=== PATIENT | male | born 1990 | race Caucasian/White ===

== ENCOUNTER 2021-08-30 08:13 | Outpatient (REF) | payer OTHER, SELFPAY ==
--- NOTE | ~2021-08-30 | XR_ITS ---
EXAMINATION: XR KNEE, LEFT CLINICAL INFORMATION: Left knee pain COMPARISON: None TECHNIQUE: Four views of the left knee. FINDINGS: Bones and soft tissues are normal. No fracture or joint effusion. Alignment is anatomic. Joint spaces are well maintained. No abnormal soft tissue calcification. XR/XR knee LT 4V IMPRESSION: Unremarkable left knee.
== END 2021-08-30 08:14 | disposition home or self-care (01) ==
LOC: HO.XRAY 08:13
PROVIDERS: PCP Internal Medicine; Visit Provider Internal Medicine
DX: M25.562 Pain in left knee (principal)
CPT/HCPCS: 73564

== ENCOUNTER → 2021-10-13 09:03 | Outpatient (BNVA) | payer OTHER, SELFPAY | PROVIDERS: PCP Internal Medicine; Visit Provider Physician Assistant | DX: M22.2X2 Patellofemoral disorders, left knee (principal) ==

== ENCOUNTER 2021-11-13 14:53 | Outpatient (RCR) | payer OTHER, SELFPAY ==
--- NOTE | 2022-03-16 08:27 | MHC.PT.DC ---
[facility] [place] [facility] [place] [facility] [place] [facility] [address] Maulik Manzo [address] [phone] F: [phone] F: [phone] F: [phone] F: [phone] Physical Therapy Discharge Report Diagnosis: L patellofemoral disorder. Date of Surgery: Date of Evaluation: 11/13/21 Date of Discharge: 03/16/22 Treatments to Date: 1 Cancellations to Date: No Shows to Date: Discharge Status: Patient Elected to Stop Visit Non-compliance Discharge Summary: Pt did not attempt therapy past his initial evaluation. Electronically signed by: Matias Dickey PT Please sign and return to therapist. Thank you for your referral.
== END 2022-03-16 08:26 | disposition home or self-care (01) ==
LOC: HO.PTCHIC 14:53
PROVIDERS: PCP Internal Medicine; Visit Provider Physician Assistant
DX: M22.2X2 Patellofemoral disorders, left knee (principal)
CPT/HCPCS: 97110; 97161

== ENCOUNTER → 2022-01-23 14:19 | Outpatient (BNVA) | payer SELFPAY | PROVIDERS: PCP Internal Medicine; Visit Provider Physician Assistant Medical | DX: Z02.79 Encounter for issue of other medical certificate (principal) ==

== ENCOUNTER → 2022-05-01 11:27 | Outpatient (BNVA) | payer OTHER, SELFPAY | PROVIDERS: PCP Internal Medicine; Visit Provider Internal Medicine | DX: M54.50 Low back pain, unspecified (principal); M47.28 Other spondylosis with radiculopathy, sacral and sacrococcygeal region | CPT/HCPCS: 99202 ==

== ENCOUNTER 2022-05-03 07:42 | Outpatient (REF) | payer OTHER, SELFPAY ==
--- NOTE | ~2022-05-03 | XR_ITS ---
EXAMINATION: XR CERVICAL SPINE CLINICAL INFORMATION: Pain fall COMPARISON: None TECHNIQUE: 6 views of the cervical spine, inclusive of flexion and extension views, and oblique views were obtained. FINDINGS: The vertebral alignment is normal. No intrinsic bony abnormality. The disc heights and neural foramina are well maintained. The endplates and posterior elements are normal. No fracture or subluxation. The surrounding prevertebral soft tissues are unremarkable. XR/XR cervical spine min 6V IMPRESSION: Unremarkable examination.
--- NOTE | ~2022-05-03 | XR_ITS ---
EXAMINATION: XR LUMBOSACRAL SPINE CLINICAL INFORMATION: Pain fall COMPARISON: Prior lumbar examinations including MRI lumbar sacral spine November 2014 TECHNIQUE: Three views of the lumbosacral spine. FINDINGS: The vertebral bodies and posterior elements are normal. The disc spaces are preserved and the vertebral alignment is normal. The paraspinal soft tissues are normal. XR/XR lumbar spine 2-3V IMPRESSION: Unremarkable examination.
== END 2022-05-03 07:43 | disposition home or self-care (01) ==
LOC: HO.XRAY 07:42
PROVIDERS: PCP Chiropractor; Visit Provider Internal Medicine
DX: M54.50 Low back pain, unspecified (principal); M25.511 Pain in right shoulder; M79.604 Pain in right leg; W19.XXXA Unspecified fall, initial encounter; Y93.9 Activity, unspecified; Y92.9 Unspecified place or not applicable; Y99.0 Civilian activity done for income or pay
CPT/HCPCS: 72052; 72100

== ENCOUNTER → 2022-05-07 10:06 | Outpatient (BNVA) | payer OTHER, SELFPAY | PROVIDERS: PCP Chiropractor; Visit Provider Physician Assistant Medical | DX: M54.50 Low back pain, unspecified (principal); M47.28 Other spondylosis with radiculopathy, sacral and sacrococcygeal region | CPT/HCPCS: 99213 ==

== ENCOUNTER → 2022-05-22 11:18 | Outpatient (BNVA) | payer OTHER, SELFPAY | PROVIDERS: PCP Chiropractor; Visit Provider Physician Assistant Medical | DX: M54.50 Low back pain, unspecified (principal); M47.28 Other spondylosis with radiculopathy, sacral and sacrococcygeal region | CPT/HCPCS: 99213 ==

== ENCOUNTER 2022-06-07 21:35 | Emergency (ER) | payer OTHER, SELFPAY ==
--- NOTE | ~2022-06-07 | CT_ITS ---
EXAMINATION: CT HEAD WITHOUT CONTRAST CLINICAL INFORMATION: Head laceration. COMPARISON: No similar priors. TECHNIQUE: Contiguous axial imaging was performed from the skull base to vertex without intravenous administration of contrast. This CT examination was performed using dose optimization techniques as appropriate, variously including the following: *Automated exposure control *Adjustment of mA and/or kV according to patient size (this includes techniques or standardized protocols for targeted exams where dose is matched to indication/reason for exam; i.e. extremities or head) *Use of iterative reconstruction technique DLP: 771 mGy-cm FINDINGS: There is no evidence of acute intracranial hemorrhage or edematous territorial infarction. There is no abnormal attenuation within the brain parenchyma. Quan-white matter differentiation is preserved. The ventricles are normal in size and configuration. No evidence for obstructive hydrocephalus. No abnormal mass effect or midline shift. No extra-axial fluid collections. Small occipital scalp laceration with hematoma. No acute calvarial fracture. The mastoid air cells and paranasal sinuses are clear. CT/CT head/brain wo IV con IMPRESSION: Occipital scalp laceration with hematoma. No acute intracranial abnormality.
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
[2022-06-07 21:43] VITALS: BP 161/102; PULSE 127; RESP 16; TEMP 36.2; O2SAT 99; BMI 36.6
[2022-06-07 22:18] VITALS: BP 145/99; PULSE 102; RESP 20; O2SAT 96
[2022-06-07] MEDS: Diphth,Pertus(ACell),Tet Adult 0.5 ML SYRINGE IM (22:51)
== END 2022-06-07 23:17 | disposition home or self-care (01) ==
PROVIDERS: Emergency Provider Emergency Medicine; PCP Internal Medicine
DX: S06.0X0A Concussion without loss of consciousness, initial encounter (principal); S01.01XA Laceration without foreign body of scalp, initial encounter; S60.511A Abrasion of right hand, initial encounter; R51.9 Headache, unspecified; Y04.8XXA Assault by other bodily force, initial encounter; Y93.9 Activity, unspecified; Y92.9 Unspecified place or not applicable; Y99.0 Civilian activity done for income or pay; Z23 Encounter for immunization
CPT/HCPCS: 12032; 70450; 90471; 90715; 99283; 99284

== ENCOUNTER → 2022-06-08 10:15 | Outpatient (BNVA) | payer OTHER, SELFPAY | PROVIDERS: PCP Internal Medicine; Visit Provider Physician Assistant Medical | DX: S01.01XA Laceration without foreign body of scalp, initial encounter (principal); S50.02XA Contusion of left elbow, initial encounter; S16.1XXA Strain of muscle, fascia and tendon at neck level, initial encounter; Y04.2XXA Assault by strike against or bumped into by another person, initial encounter | CPT/HCPCS: 99202 ==

== ENCOUNTER → 2022-06-12 09:39 | Outpatient (BNVA) | payer OTHER, SELFPAY | PROVIDERS: PCP Internal Medicine; Visit Provider Internal Medicine | DX: S06.9X0A Unspecified intracranial injury without loss of consciousness, initial encounter (principal); S01.01XA Laceration without foreign body of scalp, initial encounter; S50.02XA Contusion of left elbow, initial encounter; Y04.2XXA Assault by strike against or bumped into by another person, initial encounter | CPT/HCPCS: 99213 ==

== ENCOUNTER → 2022-06-19 13:57 | Outpatient (BNVA) | payer OTHER, SELFPAY | PROVIDERS: PCP Internal Medicine; Visit Provider Internal Medicine | DX: S06.0X0A Concussion without loss of consciousness, initial encounter (principal); S01.01XA Laceration without foreign body of scalp, initial encounter; S50.02XA Contusion of left elbow, initial encounter; Y04.2XXA Assault by strike against or bumped into by another person, initial encounter | CPT/HCPCS: 73080; 99214 ==

== ENCOUNTER → 2022-06-29 08:19 | Outpatient (BNVA) | payer OTHER, SELFPAY | PROVIDERS: PCP Internal Medicine; Visit Provider Internal Medicine | DX: S01.01XA Laceration without foreign body of scalp, initial encounter (principal); Y04.2XXA Assault by strike against or bumped into by another person, initial encounter; F07.81 Postconcussional syndrome; R51.9 Headache, unspecified | CPT/HCPCS: 99213 ==

== ENCOUNTER → 2022-07-10 12:51 | Outpatient (BNVA) | payer OTHER, SELFPAY | PROVIDERS: PCP Internal Medicine; Visit Provider Physician Assistant Medical | DX: S16.1XXD Strain of muscle, fascia and tendon at neck level, subsequent encounter (principal); S06.9X0D Unspecified intracranial injury without loss of consciousness, subsequent encounter; S50.02XD Contusion of left elbow, subsequent encounter; Y04.2XXD Assault by strike against or bumped into by another person, subsequent encounter | CPT/HCPCS: 99213 ==

== ENCOUNTER → 2022-07-27 14:05 | Outpatient (BNVA) | payer OTHER, SELFPAY | PROVIDERS: PCP Internal Medicine; Visit Provider Internal Medicine | DX: S01.01XD Laceration without foreign body of scalp, subsequent encounter (principal); S16.1XXD Strain of muscle, fascia and tendon at neck level, subsequent encounter; Y04.2XXD Assault by strike against or bumped into by another person, subsequent encounter; R51.9 Headache, unspecified | CPT/HCPCS: 99213 ==

== ENCOUNTER → 2022-08-09 11:01 | Outpatient (BNVA) | payer OTHER, SELFPAY | PROVIDERS: PCP Internal Medicine; Visit Provider Internal Medicine | DX: R51.9 Headache, unspecified (principal) | CPT/HCPCS: 99213 ==

== ENCOUNTER → 2022-08-27 09:44 | Outpatient (BNVA) | payer OTHER, SELFPAY | PROVIDERS: PCP Internal Medicine; Visit Provider Internal Medicine | DX: S06.0X0D Concussion without loss of consciousness, subsequent encounter (principal); S61.412D Laceration without foreign body of left hand, subsequent encounter; Y04.2XXD Assault by strike against or bumped into by another person, subsequent encounter | CPT/HCPCS: 99213 ==

== ENCOUNTER → 2022-08-28 07:42 | Outpatient (BNVA) | payer OTHER, SELFPAY | PROVIDERS: PCP Internal Medicine; Visit Provider Internal Medicine | DX: S06.0X0D Concussion without loss of consciousness, subsequent encounter (principal); S61.412D Laceration without foreign body of left hand, subsequent encounter; Y04.2XXD Assault by strike against or bumped into by another person, subsequent encounter | CPT/HCPCS: 99213 ==

== ENCOUNTER → 2022-09-10 14:20 | Outpatient (BNVA) | payer OTHER, SELFPAY | PROVIDERS: PCP Internal Medicine; Visit Provider Physician Assistant Medical | DX: S06.0X0D Concussion without loss of consciousness, subsequent encounter (principal); S50.02XD Contusion of left elbow, subsequent encounter; Y04.2XXD Assault by strike against or bumped into by another person, subsequent encounter; R51.9 Headache, unspecified | CPT/HCPCS: 99213 ==

== ENCOUNTER → 2022-09-24 08:35 | Outpatient (BNVA) | payer OTHER, SELFPAY | PROVIDERS: PCP Internal Medicine; Visit Provider Internal Medicine | DX: S01.01XD Laceration without foreign body of scalp, subsequent encounter (principal); Y04.2XXD Assault by strike against or bumped into by another person, subsequent encounter; R51.9 Headache, unspecified | CPT/HCPCS: 99213 ==

== ENCOUNTER → 2022-10-09 12:50 | Outpatient (BNVA) | payer OTHER, SELFPAY | PROVIDERS: PCP Internal Medicine; Visit Provider Nurse Practitioner Family | DX: F07.81 Postconcussional syndrome (principal); M54.2 Cervicalgia | CPT/HCPCS: 99202 ==

== ENCOUNTER → 2022-10-15 13:17 | Outpatient (BNVA) | payer OTHER, SELFPAY | PROVIDERS: PCP Internal Medicine; Visit Provider Internal Medicine | DX: S06.0X0D Concussion without loss of consciousness, subsequent encounter (principal); S01.01XD Laceration without foreign body of scalp, subsequent encounter; Y04.2XXD Assault by strike against or bumped into by another person, subsequent encounter; R51.9 Headache, unspecified | CPT/HCPCS: 99213 ==

== ENCOUNTER 2023-01-02 14:30 | Emergency (ER) | payer OTHER, SELFPAY ==
--- NOTE | ~2023-01-02 | XR_ITS ---
EXAMINATION: XR KNEE, LEFT CLINICAL INFORMATION: Pain and injury. COMPARISON: None available. TECHNIQUE: Four views of the left knee. FINDINGS: The tricompartment joint space is normal. No visible acute fracture, dislocation or subluxation seen. The soft tissues are normal. XR/XR knee LT 4V IMPRESSION: Unremarkable left knee exam.
[2023-01-02 14:35] VITALS: BP 132/84; PULSE 97; RESP 16; TEMP 37.1; O2SAT 100; BMI 35.3
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
== END 2023-01-02 15:22 | disposition home or self-care (01) ==
PROVIDERS: Emergency Provider Emergency Medicine
DX: S89.92XA Unspecified injury of left lower leg, initial encounter (principal); X50.1XXA Overexertion from prolonged static or awkward postures, initial encounter; Y93.9 Activity, unspecified; Y92.9 Unspecified place or not applicable; Y99.9 Unspecified external cause status; Z79.899 Other long term (current) drug therapy
CPT/HCPCS: 73564; 99282; 99283

== ENCOUNTER 2023-01-16 14:58 | Outpatient (AMB) | payer OTHER, SELFPAY ==
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
[2023-01-16 15:05] VITALS: BMI 35.3
== END 2023-01-16 15:32 | disposition home or self-care (01) ==
PROVIDERS: Visit Provider Orthopaedic Surgery
DX: S83.242A Other tear of medial meniscus, current injury, left knee, initial encounter (principal)
CPT/HCPCS: 99202

== ENCOUNTER → 2023-01-16 14:58 | Outpatient (BNVA) | payer OTHER, SELFPAY | PROVIDERS: Visit Provider Orthopaedic Surgery | DX: F07.81 Postconcussional syndrome (principal); G44.309 Post-traumatic headache, unspecified, not intractable; S83.242A Other tear of medial meniscus, current injury, left knee, initial encounter | CPT/HCPCS: 99202; 99212 ==

== ENCOUNTER 2023-01-16 15:47 | Outpatient (AMB) | payer OTHER, SELFPAY ==
[2023-01-16 15:48] VITALS: BP 122/82; PULSE 78; O2SAT 95; BMI 37.0
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
== END 2023-01-16 17:12 | disposition home or self-care (01) ==
PROVIDERS: Visit Provider Nurse Practitioner Family
DX: G44.309 Post-traumatic headache, unspecified, not intractable (principal); F07.81 Postconcussional syndrome
CPT/HCPCS: 99214

== ENCOUNTER 2023-04-17 10:31 | Outpatient (AMB) | payer OTHER, SELFPAY ==
[2023-04-17 10:32] VITALS: BMI 37.0
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
== END 2023-04-17 10:50 | disposition home or self-care (01) ==
PROVIDERS: Visit Provider Orthopaedic Surgery
DX: S83.242A Other tear of medial meniscus, current injury, left knee, initial encounter (principal)
CPT/HCPCS: 99212

== ENCOUNTER → 2023-04-17 10:31 | Outpatient (BNVA) | payer OTHER, SELFPAY | PROVIDERS: Visit Provider Orthopaedic Surgery | DX: M25.562 Pain in left knee (principal); S83.242A Other tear of medial meniscus, current injury, left knee, initial encounter; X50.1XXA Overexertion from prolonged static or awkward postures, initial encounter; Y93.02 Activity, running; Y92.89 Other specified places as the place of occurrence of the external cause; Y99.0 Civilian activity done for income or pay | CPT/HCPCS: 99212 ==

== ENCOUNTER 2023-05-06 15:16 | Outpatient (AMB) | payer OTHER, SELFPAY ==
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
[2023-05-06 15:21] VITALS: BP 124/68; PULSE 67; O2SAT 98; BMI 36.9
== END 2023-05-07 09:46 | disposition home or self-care (01) ==
PROVIDERS: Visit Provider Nurse Practitioner Family
DX: S06.9XAS Unspecified intracranial injury with loss of consciousness status unknown, sequela (principal); F07.81 Postconcussional syndrome; G44.309 Post-traumatic headache, unspecified, not intractable
CPT/HCPCS: 99214

== ENCOUNTER → 2023-05-06 15:16 | Outpatient (BNVA) | payer OTHER, SELFPAY | PROVIDERS: Visit Provider Nurse Practitioner Family | DX: F07.81 Postconcussional syndrome (principal); G44.309 Post-traumatic headache, unspecified, not intractable | CPT/HCPCS: 99212 ==

== ENCOUNTER 2023-05-10 09:44 | Day surgery (SDC) | payer OTHER, SELFPAY ==
[2023-05-07 15:18] VITALS: BMI 37.0
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
[2023-05-10] VITALS (11 sets, daily range): BP systolic 116–151; BP diastolic 81–96; PULSE 60–76; RESP 15–20; TEMP 36.3–36.9; O2SAT 96–100; BMI 36.5
[2023-05-10] MEDS: Lactated Ringers 1,000 ML 100 ML IVCONT (10:44)
--- NOTE | 2023-05-10 14:46 | P.BOP_ITS ---
Brief Operative Note Date of Service: 05/10/23 Pre-op diagnosis: Left knee medial meniscus tear Post-op diagnosis: same Procedure: Left knee diagnostic arthroscopy with arthroscopic partial medial meniscectomy Implants: none Surgeon: Isac Estrada MD Anesthesia: GLMA Was an Patient Information Coordinator used for this Procedure?: No Estimated blood loss (mL): 10 Tourniquet time (min): 0 Pathology: none sent Condition: stable Disposition: PACU
--- NOTE | 2023-05-10 14:46 | P.OP_ITS ---
Operative Note Operative Note Date of Service: 05/10/23 Narrative: After the patient was identified as Fei Tello and his left knee was initialed by myself they were brought to the operating room where general anesthesia was induced by the anesthesiologist in routine fashion. The patient was given 2 g of IV Ancef preoperatively for infection prophylaxis. The patient's left lower extremity was prepped and draped in sterile fashion. A formal time-out was completed. Marcaine was injected into the planned incision sites as well as the patient's left knee joint. A #11 scalpel blade was used to make an anterolateral portal 1 cm proximal to the joint line and 1 cm lateral to the patellar tendon. Blunt trocar technique was used to enter the suprapatellar pouch with the knee in extension. Diagnostic arthroscopy showed multiple bands of thickened plica which would be excised at the end of the procedure. There were no loose bodies or abnormalities found in either the medial or lateral gutters. The articular surface of the patella showed diffuse grades 1 and 2 degenerative changes. The trochlear groove articular surface showed diffuse grade 1 degenerative changes. The patient's knee was flexed to 45 degrees and a valgus force was placed upon it. The medial compartment was entered. An anteromedial portal was made 1 cm proximal to the joint line and 1 cm medial to the patellar tendon. Probing of the medial meniscus showed a radial tear of the posterior horn. A partial medial meniscectomy was performed using the arthroscopic shaver. Following the partial meniscectomy the remainder of the meniscus tissue was stable. There were diffuse grade 1 degenerative changes of the medial femoral condyle as well as grade 1 degenerative changes of the medial tibial plateau. The patient's knee was placed into a neutral position. There was no injury to the anterior cruciate ligament. The patient's knee was then placed in the figure of 4 position and the lateral compartment was entered. There was no evidence of lateral meniscus tearing. There were minimal deg enerative changes of the lateral femoral condyle and lateral tibial plateau. The patient's knee was once again brought into extension and the suprapatellar pouch was entered. The arthroscopic shaver and the ArthroCare Wand were used to excise the thickened bands of plica. The articular surfaces of the patella and trochlear groove were smooth so no chondroplasty was indicated. The knee joint was irrigated and then drained. All arthroscopic instruments were removed. The 2 portals were closed with 3-0 nylon interrupted suture. The knee joint was injected with Marcaine. Dry sterile dressing and Michael bandages were placed over the patient's knee. The patient was awoken and extubated in the operating room. The patient was transferred to the recovery room in stable condition.
[2023-05-10] MEDS: fentaNYL citrate/PF 100 MCG/2 ML VIAL 25 MCG IVPUSH (14:55)
[2023-05-10] MEDS: oxyCODONE HCl Immed Release 5 MG TABLET PO (14:55)
[2023-05-10] MEDS: cefTRIAXone sodium 1 GM in 0.9 % Sodium Chloride 50 ML IV (15:19)
== END 2023-05-10 16:06 | disposition home or self-care (01) ==
PROVIDERS: PCP Internal Medicine; Visit Provider Orthopaedic Surgery
PROC: (CPT 29870; principal; 2023-05-10 12:00)
DX: S83.282A Other tear of lateral meniscus, current injury, left knee, initial encounter (principal); Y35.891A Legal intervention involving other specified means, law enforcement official injured, initial encounter; Y93.02 Activity, running; Y92.410 Unspecified street and highway as the place of occurrence of the external cause; Y99.9 Unspecified external cause status
CPT/HCPCS: 29881; J0131; J0171; J0690; J0696; J1100; J1885; J2405; J2704; J2795; J3010

== ENCOUNTER → 2023-05-10 09:44 | Outpatient (BNV) | payer OTHER, SELFPAY | PROVIDERS: PCP Internal Medicine; Visit Provider Orthopaedic Surgery | DX: S83.242A Other tear of medial meniscus, current injury, left knee, initial encounter (principal) | CPT/HCPCS: 29881 ==

== ENCOUNTER 2023-05-23 12:32 | Outpatient (AMB) | payer OTHER, SELFPAY ==
--- NOTE | 2023-05-23 12:33 | A.OFFVIS_ITS ---
Intake Intake Visit Reasons: PO-Lt Knee 05/10 Intake Note: Fei a 32 year old male presents today for a post operative left knee , DOS 05/10/23. Patient reports he is doing well, stating mild pain with a pain level 4 out of 10. Allergies No Known Allergies [No Known Allergies*] Allergy (Verified 05/23/23 12:39) HPI PO-Lt Knee 05/10 HPI Details 32-year-old male who returns to the [facility] today for post-op left knee , 05/10/[address] Estrada. He continues to have mild pain and rates the pain as 4 on the scale of 0-10. He is doing well otherwise and has no other concerns today. COUNTS INCLUDE 234 BEDS AT THE [facility] Medical History (Updated 05/23/23 @ 14:15 by Mahogany Wilson PA-C) Cervicalgia Surgical History Hx of tonsillectomy Family History Mother Breast cancer Social History Alcohol intake: current Patient Tobacco Use Status: Never used Tobacco Current occupational status: employed Current occupation: [employer], rt hand Review of Systems Const All systems reviewed & are unremarkable except as noted in HPI and below Physical Exam Const General: cooperative and no acute distress Orientation/consciousness: patient oriented x3 Resp Effort & Inspection: normal respiratory effort and able to speak in complete sentences Cardio Peripheral pulses: Peripheral pulses 2+ throughout Neuro General: patient oriented x3 Extrem Other: Left knee: Normal to inspection. He does have diffused swelling throughout the knee. ROM is 0-95 degrees. Calf supple, nontender. NVI. Results Reviewed Results Reviewed: Date of Service: 05/10/23 Pre-op diagnosis: Left knee medial meniscus tear Post-op diagnosis: same Procedure: Left knee diagnostic arthroscopy with arthroscopic partial medial meniscectomy Implants: none Surgeon: Isac Estrada MD Assessment & Plan Assessment & Plan (1) Patellofemoral disorder of left knee: Code(s): M22.2X2 - Patellofemoral disorders, left knee (2) Tear of medial meniscus of left knee: Code(s): S83.242A - Other tear of medial meniscus, current injury, left knee, initial en counter Qualifiers: Tear current or old: current Encounter type: subsequent encounter Meniscus tear of knee type: peripheral Qualified Code(s): S83.222D - Peripheral tear of medial meniscus, current injury, left knee, subsequent encounter Plan Sutures removed today, steri strips applied. He will begin a course of physical therapy to work on ROM, gait training and quad strengthening. He will remain out of work till his next appointment in [address] Estrada, sooner if needed. Orders: Orders PT Evaluation and Treatment Today M22.2X2 - Patellofemoral disorders, left knee, S83.242A - Other tear of medial meniscus, current injury, left knee, initial encounter Patient Instructions: Scribed for Mahogany Wilson PA-C, by Domingo De Souza general medical practitioner, on 05/23/2023 at 12:45 PM EST. I, Mahogany Wilson PA-C, have personally reviewed and agree with the information entered by the scribe. Coding Level of Care Code Global (56519) Diagnoses Patellofemoral disorder of left knee M22.2X2 Peripheral tear of medial meniscus of left knee as current injury, subsequent encounter S83.222D Tear current or old: current Encounter type: subsequent encounter Meniscus tear of knee type: peripheral
== END 2023-05-23 12:54 | disposition home or self-care (01) ==
PROVIDERS: Visit Provider Physician Assistant
DX: M22.2X2 Patellofemoral disorders, left knee (principal); S83.222D Peripheral tear of medial meniscus, current injury, left knee, subsequent encounter
CPT/HCPCS: 99024

== ENCOUNTER → 2023-05-23 12:32 | Outpatient (BNVA) | payer OTHER, SELFPAY | PROVIDERS: Visit Provider Physician Assistant | DX: M22.2X2 Patellofemoral disorders, left knee (principal); S83.222D Peripheral tear of medial meniscus, current injury, left knee, subsequent encounter; Z98.890 Other specified postprocedural states | CPT/HCPCS: 99212 ==

== ENCOUNTER 2023-06-25 13:18 | Outpatient (AMB) | payer OTHER, SELFPAY ==
--- NOTE | 2023-06-25 13:41 | A.OFFVIS_ITS ---
Intake Vital Signs 06/25/23 13:44 Height 6 ft Weight 260 lb BMI 35.3 Intake Visit Reasons: PO-Lt Knee 05/10 DR- Intake Note: Fei is a 32 year old male who presents for a post operative follow up after undergoing left knee arthroscopic surgery on 05/10/2023. He continues going to formal physical therapy. He reports mild to moderate discomfort in his left knee. He denies any fevers or chills. Patient states that his discomfort is most noticeable when he is sitting or walking for an extended time. Allergies No Known Allergies [No Known Allergies*] Allergy (Verified 06/25/23 13:46) Medication List - Last Reconciled 06/25/23 by Isac Estrada MD [id number] 250-250-65 mg (Excedrin Extra Strength) 1 tab PO Q4-6H PRN magnesium oxide 400 mg PO BEDTIME naproxen 500 mg PO BID PRN 30 days oxycodone 5 mg PO Q6H PRN riboflavin (vitamin B2) 400 mg PO DAILY rizatriptan 5 - 10 mg (0.5 - 1 x 10 mg) PO Q2H PRN 21 days sumatriptan succinate 50 - 100 mg orally at onset of headache, may repeat in 2 hrs PRN; max 2 tabs per day or 4 tabs/week (may take with Naproxen) 30 days topiramate 25 - 50 mg (1 - 2 x 25 mg) PO BEDTIME 30 days PFSH Medical History (Updated 06/25/23 @ 14:36 by Isac Estrada MD) Cervicalgia Surgical History (Updated 06/25/23 @ 13:49 by Yesika Bower CMA) Hx of left knee surgery (05/10/23) Hx of tonsillectomy Family History Mother Breast cancer Social History Alcohol intake: current Patient Tobacco Use Status: Never used Tobacco Current occupational status: employed Current occupation: [employer], rt hand Physical Exam Vital Signs: BMI result Body Mass Index 35.3 Extrem Other: Physical examination of the patient's left knee shows that the surgical incision s are well healed, no erythema, mild discomfort with range of motion, no instability Assessment & Plan Assessment & Plan (1) Left knee pain: Code(s): M25.562 - Pain in left knee Plan Mr. Tello continues to do well after undergoing left knee arthroscopic surgery on 05/10/2023. Will continue with his physical therapy exercises. I discussed with the patient the fact that his discomfort should continue to improve over the next few weeks. I will clear him to return to work once his discomfort and strength have improved. He will contact me prior to his follow- up appointment in 4-6 weeks should any questions or concerns arise. Coding Level of Care Code Global (17543) Diagnoses Left knee pain M25.562
[2023-06-25 13:44] VITALS: BMI 35.3
== END 2023-06-25 14:10 | disposition home or self-care (01) ==
PROVIDERS: Visit Provider Orthopaedic Surgery
DX: M25.562 Pain in left knee (principal)
CPT/HCPCS: 99024

== ENCOUNTER → 2023-06-25 13:18 | Outpatient (BNVA) | payer OTHER, SELFPAY | PROVIDERS: Visit Provider Orthopaedic Surgery | DX: Z47.89 Encounter for other orthopedic aftercare (principal) | CPT/HCPCS: 99212 ==

== ENCOUNTER 2023-07-30 08:00 | Outpatient (RCR) | payer OTHER, SELFPAY ==
--- NOTE | 2023-05-25 07:46 | MHC.PT.EP ---
[facility] [place] Office [place] Office [place] Office [address] Maulik Manzo [address] [phone] F: [phone] F: [phone] F: [phone] F: [phone] Physical Therapy Plan of Care Date of Evaluation: 05/24/23 Date of Surgery: 05/10/2023 Diagnosis: This is a 32 yo male presenting to skilled PT with a script for patellofemoral disorders, L knee. Assessment: This is a 32 yo male presenting to skilled PT with a script for patellofemoral disorders, L knee. On 01/01/23 patient reported to [facility] with [place] knee pain. Patient states that he was involved in a [place]tega today and his left foot got stuck on an embankment and he twisted his knee feeling a pop. Patient without resolving symptoms and underwent left knee , DOS 05/10/23 (arthroscopic partial medial meniscectomy). Patient saw ortho on 05/23/23 per note Sutures removed today, steri strips applied. He will begin a course of physical therapy to work on ROM, gait training and quad strengthening. He will remain out of work till his next appointment in [address] Estrada, sooner if needed. He was utilizing a cane after surgery but ambulating without AD now (does occasionally). Pain is located throughout the quad, quad tendon and patella tendon, posterior knee (Pain is stiff, has numbness in the foot). Assessment reveals pain that ranges from up to a 4/10 at the worst. Patient demos decreased L knee and hip ROM, strength of LLE, TTP at quad tendon, patella tendon as well as hamstring tendons. He demos impaired posture with forward head and rounded shoulders along with decreased gait and balance expected s/p surgery. He demos increased swelling throughout the LE that is causing his ROM to be limited. Based on functional limitations, impaired QOL and pain tolerance patient is a good candidate for skilled PT 2x/wk for 5wks. Frequency and Duration: The patient will be seen 2x/wk for 5wks Short Term Goals: (in 2 weeks) Patient will improve knee AROM to WFL without assist Patient will demo good undestanding and performance of quad set in multiple different planes without cues from PT Patient will be I in [facility] Group Home Goals: (in 5 weeks) Patient will report 75% improvement in balance and strength of LLE as evidenced by reports no of falls or buckling in LE Patient will improve LEFs by 10 points Patient will demo WFL AROM of hip, knee and ankle Patient will demo proper squat and lift techniques without increase in pain Patient will demo WNL knee and hip MMT Treatment Plan: Modalities to reduce pain, spasms and effusion. Manual therapy to restore motion and function. Therapeutic exercise to improve strength and flexibility. Neuromuscular re-education for posture and balance. Therapeutic activities to return to functional activities of daily living. Electronically signed by: Senia Patel PT Please sign and return to therapist. Thank you for your referral.
--- NOTE | 2023-07-30 08:49 | MHC.PT.PR ---
[facility] [place] Office [place] Office [place] Office [address] Maulik Manzo [address] [phone] F: [phone] F: [phone] F: [phone] F: [phone] Physical Therapy Progress Note Diagnosis: This is a 32 yo male presenting to skilled PT with a script for patellofemoral disorders, L knee. Date of Surgery: 05/10/2023 Date of Evaluation: 05/24/23 Treatments to Date: 17 Cancellations to Date: 0 No Shows to Date: 0 Subjective: Patient had 4 incidents of knee buckling over the weekend and impaired gait pattern. 3/10 pain today Pain Score and Location: 2-7 medial knee, post knee Objective Measures: Pain: at the best 1/10, worst 6/10 Pain location: medial joint line, incision and medial quad towards the tendon Pain description: sharp and shooting (with some movements), achy (at rest, needs to constantly move it when sitting) AROM: knee flexion 122, knee extension 2 MMT: hip flexion 4/5, hip IR 4/5, hip ER 4/5, hip abduction 4+/5, hip adduction 4-/5, knee flexion 4/5, knee extension 4/5 Gait: continues to have slight antalgic pattern, decreased full extension with step and step through Functional limitations: sitting for less than an hour/driving, stairs (reciprocal for stairs 4-5 at a time), walking for longer than 45-60, 1/2 kneeling transfers and weight bearing through extremity, compensates with lifting and squatting LEFs: 59/80 Assessment: 07/30/23: Patient has progressed since evaluation day. He has been to 17 visits and progressed balance, ther-act/dynamic activities. He demos good ROM but slightly limited in full extension. His pain is still present and he reports knee buckling at times more recently over the past few days. I educated him to speak to surgeon if some type of bracing would be appropriate to return to work in 2 weeks safely. At this time skilled PT is no longer indicated. Educated on healing times and to address lingering concerns with surgeon. DC to HEP. PT Plan: Discharge from PT Frequency and Duration: The patient will be seen 2x/wk for 4wks Treatment Plan: Therapeutic Exercise Dynamic Therapeutic Activities Neuromuscular Re-ed Manual Therapies Joint Mobilization Taping Gait Home Exercise Program Patient Education Hot or Cold Pack Reviewed/ Agreed with Student Documentation: Therapist: Thank you once again for your referral.
--- NOTE | 2023-08-29 08:23 | MHC.PT.DC ---
[facility] [place] Office [place] Office [place] Office [address] Maulik Manzo [address] [phone] F: [phone] F: [phone] F: [phone] F: [phone] Physical Therapy Discharge Report Diagnosis: This is a 32 yo male presenting to skilled PT with a script for patellofemoral disorders, L knee. Date of Surgery: 05/10/2023 Date of Evaluation: 05/24/23 Date of Discharge: 08/29/23 Treatments to Date: 17 Cancellations to Date: 0 No Shows to Date: 0 Discharge Status: Achieved Goals Improved Function Independent with HEP Discharge Summary: 07/30/23: Patient has progressed since evaluation day. He has been to 17 visits and progressed balance, ther-act/dynamic activities. He demos good ROM but slightly limited in full extension. His pain is still present and he reports knee buckling at times more recently over the past few days. I educated him to speak to surgeon if some type of bracing would be appropriate to return to work in 2 weeks safely. At this time skilled PT is no longer indicated. Educated on healing times and to address lingering concerns with surgeon. DC to HEP. Electronically signed by: Senia Patel PT Please sign and return to therapist. Thank you for your referral.
== END 2023-08-29 08:23 | disposition home or self-care (01) ==
LOC: HO.PTCHIC 08:00
PROVIDERS: PCP Internal Medicine; Visit Provider Physician Assistant
DX: S83.242A Other tear of medial meniscus, current injury, left knee, initial encounter (principal); M22.2X2 Patellofemoral disorders, left knee
CPT/HCPCS: 97110; 97112; 97140; 97161; 97164; 97530

== ENCOUNTER 2023-07-30 09:14 | Outpatient (AMB) | payer OTHER, SELFPAY ==
[2023-07-30 09:16] VITALS: BMI 35.3
--- NOTE | 2023-07-30 09:16 | MHC.OFFVIS ---
Intake Vital Signs 07/30/23 09:16 Height 6 ft Weight 260 lb BMI 35.3 Intake Visit Reasons: PO-Lt Knee 05/10 DR- Intake Note: Fei is a 33 year old male who presents for his post operative appointment S/P his Left knee on 05/10/2023 DR. Patient reports he is having a little bit of pain and it did give out / buckled a couple of times over the weekend. He has not yet returned to work. Allergies No Known Allergies [No Known Allergies*] Allergy (Verified 07/30/23 09:24) Medication List - Last Reconciled 07/30/23 by Isac Estrada MD [id number] 250-250-65 mg (Excedrin Extra Strength) 1 tab PO Q4-6H PRN magnesium oxide 400 mg PO BEDTIME naproxen 500 mg PO BID PRN 30 days oxycodone 5 mg PO Q6H PRN riboflavin (vitamin B2) 400 mg PO DAILY rizatriptan 5 - 10 mg (0.5 - 1 x 10 mg) PO Q2H PRN 21 days sumatriptan succinate 50 - 100 mg orally at onset of headache, may repeat in 2 hrs PRN; max 2 tabs per day or 4 tabs/week (may take with Naproxen) 30 days topiramate 25 - 50 mg (1 - 2 x 25 mg) PO BEDTIME 30 days PFSH Medical History Cervicalgia Surgical History Hx of left knee surgery (05/10/23) Hx of tonsillectomy Family History Mother Breast cancer Social History Alcohol intake: current Patient Tobacco Use Status: Never used Tobacco Current occupational status: employed Current occupation: [employer], rt hand Physical Exam Vital Signs: BMI result Body Mass Index 35.3 Const Other: Well-nourished well-developed very friendly male awake alert and oriented x3 in no acute distress Extrem Other: Left knee examination shows that the surgical incisions are well healed, no erythema, no crepitus with range of motion, 4+ out of 5 strength with quadriceps testing, no instability Assessment & Plan Assessment & Plan (1) Left knee pain: Code(s): M25.562 - Pain in left knee Plan Mr. Tello continues to do fairly well after undergoing left knee arthroscopic surgery on 05/10/2023. He will continue to progress to activities as tolerated. 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 He will follow up with me on an as-needed basis should his symptoms not plateau at an unacceptable level over the next few months. Coding Level of Care Code Global (28956) Diagnoses Left knee pain M25.562
== END 2023-07-30 09:51 | disposition home or self-care (01) ==
PROVIDERS: Visit Provider Orthopaedic Surgery
DX: M25.562 Pain in left knee (principal)
CPT/HCPCS: 99024

== ENCOUNTER → 2023-07-30 09:14 | Outpatient (BNVA) | payer OTHER, SELFPAY | PROVIDERS: Visit Provider Orthopaedic Surgery | DX: M25.562 Pain in left knee (principal); Z98.890 Other specified postprocedural states | CPT/HCPCS: 99212 ==

== ENCOUNTER 2023-10-23 08:32 | Outpatient (AMB) | payer OTHER, SELFPAY ==
[2023-10-23 08:34] VITALS: BMI 35.3
--- NOTE | 2023-10-23 08:34 | A.OFFVIS_ITS ---
Vital Signs 10/23/23 08:34 Height 6 ft Weight 260 lb BMI 35.3 Intake Visit Reasons: OV-Left knee pain/Follow up Intake Note: Fie is a 33 year old male who presents for a follow up after undergoing left knee arthroscopic surgery on 05/10/2023. The patient reports continued mild to moderate discomfort in his left knee. 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 The patient did recently aggravate his knee while planting [place] trees. He denies any locking or giving way. He has taken ibuprofen which gives him only mild relief. Allergies No Known Allergies [No Known Allergies*] Allergy (Verified 10/23/23 08:39) Medication List - Last Reconciled 10/23/23 by Isac Estrada MD [id number] 250-250-65 mg (Excedrin Extra Strength) 1 tab PO Q4-6H PRN celecoxib (Celebrex) 200 mg PO DAILY 3 months magnesium oxide 400 mg PO BEDTIME naproxen 500 mg PO BID PRN 30 days oxycodone 5 mg PO Q6H PRN riboflavin (vitamin B2) 400 mg PO DAILY rizatriptan 5 - 10 mg (0.5 - 1 x 10 mg) PO Q2H PRN 21 days sumatriptan succinate 50 - 100 mg orally at onset of headache, may repeat in 2 hrs PRN; max 2 tabs per day or 4 tabs/week (may take with Naproxen) 30 days topiramate 25 - 50 mg (1 - 2 x 25 mg) PO BEDTIME 30 days PFSH Medical History Cervicalgia Surgical History Hx of left knee surgery (05/10/23) Hx of tonsillectomy Family History Mother Breast cancer Social History Alcohol intake: current Patient Tobacco Use Status: Never used Tobacco Current occupational status: employed Current occupation: [employer], rt hand Physical Exam Vital Signs: BMI result Body Mass Index 35.3 Const Other: Well-nourished well-developed very friendly male awake alert and oriented x3 in no acute distress Extrem Other: Bilateral lower extremity examination shows good capillary refill, no skin lesions noted, normal sensation light touch Left knee examination shows that the surgical incisions are well healed, no erythema, mild crepitus with range of motion, mild discomfort with range of motion, no instability Assessment & Plan Assessment & Plan (1) Left knee pain: Code(s): M25.562 - Pain in left knee Category: Medical Plan Mr. Tello presents with left knee discomfort after undergoing left knee arthroscopic surgery on 05/10/2023 due to residual early degenerative joint disease. I did give the patient a prescription for Celebrex which he will take instead of the ibuprofen. He has not gotten good relief from cortisone injections in the past. Thus, I will see whether or not his insurance company will cover a viscosupplementation injection for his left knee. I will see him back once the injection is available. Feel free to call me at any time should questions regarding his orthopedic management arise. I spent 21 minutes in reviewing the patient's records and imaging studies, seeing the patient and documenting in the medical record. Medications: New celecoxib (Celebrex) 200 mg PO DAILY 3 months 90 caps 3RF Coding Level of Care Code Est Pt Level 3 (14026) Diagnoses Left knee pain M25.562
== END 2023-10-23 08:55 | disposition home or self-care (01) ==
PROVIDERS: Visit Provider Orthopaedic Surgery
DX: M25.562 Pain in left knee (principal)
CPT/HCPCS: 99214

== ENCOUNTER → 2023-10-23 08:32 | Outpatient (BNVA) | payer OTHER, SELFPAY | PROVIDERS: Visit Provider Orthopaedic Surgery | DX: M25.562 Pain in left knee (principal) | CPT/HCPCS: 99212 ==

== ENCOUNTER 2023-12-24 07:46 | Outpatient (AMB) | payer OTHER, SELFPAY ==
--- NOTE | 2023-12-24 07:53 | A.OFFVIS_ITS ---
Intake Visit Reasons: OV- Left knee Durolane injection Intake Note: Fei is a 33 year old male who presents with complaints of intermittent discomfort in his left knee. He did undergo left knee arthroscopic surgery on 05/10/2023. He got fairly good relief from that surgery initially. Most of his discomfort is along the anterior aspect of his knee. He denies any locking or giving way. He has tried Tylenol and anti-inflammatory medicines which gave him only mild relief. 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 Allergies No Known Allergies [No Known Allergies*] Allergy (Verified 12/24/23 07:57) Medication List - Last Reconciled 12/25/23 by Isac Estrada MD [id number] 250-250-65 mg (Excedrin Extra Strength) 1 tab PO Q4-6H PRN celecoxib (Celebrex) 200 mg PO DAILY 3 months magnesium oxide 400 mg PO BEDTIME naproxen 500 mg PO BID PRN 30 days oxycodone 5 mg PO Q6H PRN riboflavin (vitamin B2) 400 mg PO DAILY rizatriptan 5 - 10 mg (0.5 - 1 x 10 mg) PO Q2H PRN 21 days sumatriptan succinate 50 - 100 mg orally at onset of headache, may repeat in 2 hrs PRN; max 2 tabs per day or 4 tabs/week (may take with Naproxen) 30 days topiramate 25 - 50 mg (1 - 2 x 25 mg) PO BEDTIME 30 days PFSH Medical History Cervicalgia Surgical History Hx of left knee surgery (05/10/23) Hx of tonsillectomy Family History Mother Breast cancer Social History Alcohol intake: current Patient Tobacco Use Status: Never used Tobacco Current occupational status: employed Current occupation: [employer] office, rt hand Physical Exam Const Other: Well-nourished well-developed very friendly male awake alert and oriented x3 in no acute distress Extrem Other: Bilateral lower extremity examination shows good capillary refill, no skin lesions noted, normal sensation light touch Left knee examination shows that the surgical incisions are well healed, no erythema, minimal crepitus with range of motion, no instability Office Procedures Joint Injection/Drain Joint Injection/Drain Primary Site: left knee Prep: site was prepped using aseptic technique Injected: 60 mg of (Durolane viscosupplementation) and 1% plain lidocaine Procedure: The patient tolerated the procedure well Coding 52079 - Large joint Procedure code (CPT) selection complete Assessment & Plan Assessment & Plan (1) Left knee pain: Code(s): M25.562 - Pain in left knee Category: Medical Plan Mr. Tello presents with left knee pain due to early degenerative joint disease. I had a lengthy discussion with the patient regarding the treatment options. The risks and benefits of a Durolane viscosupplementation injection were discussed at length with the patient. The patient wished to proceed. He tolerated the injection well. Because his job involves an excessive amount of physical activity I will keep him out of work for the next few weeks to allow the injection to take effect. He will follow up with me on an as-needed basis should his symptoms not plateau at an unacceptable level over the next few months. Feel free to call me at any time should questions regarding his orthopedic management arise. I spent 20 minutes in reviewing the patient's records and imaging studies, seeing the patient and documenting in the medical record. Orders: Orders AMB Joint Injection/Aspiration 12/24/23 M25.562 - Pain in left knee Coding Level of Care Code Est Pt Level 3 (75904) Diagnoses Left knee pain M25.562 CPT Codes Coding - 49362 Large joint: 70125 - Large joint ([id number])
== END 2023-12-24 08:06 | disposition home or self-care (01) ==
PROVIDERS: Visit Provider Orthopaedic Surgery
DX: M25.562 Pain in left knee (principal)
CPT/HCPCS: 20610; 99213

== ENCOUNTER → 2023-12-24 07:46 | Outpatient (BNVA) | payer OTHER, SELFPAY | PROVIDERS: Visit Provider Orthopaedic Surgery | DX: M17.12 Unilateral primary osteoarthritis, left knee (principal) | CPT/HCPCS: 20610; 99212; J7318 ==

== ENCOUNTER → 2024-06-05 09:21 | Outpatient (BNVA) | payer OTHER, SELFPAY | PROVIDERS: Visit Provider Internal Medicine | DX: Z02.79 Encounter for issue of other medical certificate (principal) | CPT/HCPCS: 99203 ==

== ENCOUNTER → 2024-06-12 07:55 | Outpatient (BNVA) | payer OTHER, SELFPAY | PROVIDERS: Visit Provider Internal Medicine | DX: F43.0 Acute stress reaction (principal) | CPT/HCPCS: 99213 ==

== ENCOUNTER → 2024-06-26 08:00 | Outpatient (BNVA) | payer OTHER, SELFPAY | PROVIDERS: Visit Provider Internal Medicine | DX: F41.1 Generalized anxiety disorder (principal) | CPT/HCPCS: 99213 ==

== ENCOUNTER → 2024-07-22 08:39 | Outpatient (BNVA) | payer OTHER, SELFPAY | PROVIDERS: Visit Provider Internal Medicine | DX: F43.0 Acute stress reaction (principal); F43.10 Post-traumatic stress disorder, unspecified | CPT/HCPCS: 99213 ==

== ENCOUNTER → 2024-07-31 08:23 | Outpatient (BNVA) | payer OTHER, SELFPAY | PROVIDERS: Visit Provider Internal Medicine | DX: F41.1 Generalized anxiety disorder (principal); F43.10 Post-traumatic stress disorder, unspecified; Z02.79 Encounter for issue of other medical certificate | CPT/HCPCS: 99213 ==

== ENCOUNTER → 2024-08-14 08:46 | Outpatient (BNVA) | payer OTHER, SELFPAY | PROVIDERS: Visit Provider Internal Medicine | DX: F43.0 Acute stress reaction (principal); Z02.79 Encounter for issue of other medical certificate | CPT/HCPCS: 99213 ==